=== PATIENT | male | born 1975 | race Caucasian/White ===

== ENCOUNTER 2019-02-10 17:19 | Emergency (ER) | payer MEDICAID ==
[~2019-02-10] VITALS: Ht 170.2 cm; Wt 81.8 kg
[~2019-02-10 17:19] MED LIST: HYDROCODONE-APA1 TAB PO; PEPCID40 MG PO; PRINIVIL20 MG PO; PROTONIX40 MG PO
[2019-02-10 17:34] VITALS: Ht 170.2 cm; Wt 81.8 kg
[2019-02-10] MEDS ORDERED: PENICILLIN V P500 MG PO (19:02)
[2019-02-10] MEDS ORDERED: TYLENOL W/CODEI1 TAB PO (19:02)
[2019-02-10 19:40] VITALS: BP 141/98
== END 2019-02-10 19:41 | disposition home or self-care (01) ==
LOC: D.ER 17:19
DX: K04.7 Periapical abscess without sinus (principal)

== ENCOUNTER 2019-05-28 19:18 | Emergency (ER) | payer MEDICAID ==
[~2019-05-28] VITALS: Ht 170.2 cm; Wt 93.0 kg
[~2019-05-28 19:18] MED LIST changes: +PENICILLIN V P500 MG PO; +TYLENOL W/CODEI1 TAB PO
[2019-05-28 19:42] VITALS: Ht 170.2 cm; Wt 93.0 kg
[2019-05-28 19:55] LABS: BASOPHILS 0.4 % (0-2); HEMATOCRIT 41.7 % (42.0-54.0); HEMOGLOBIN 13.8 g/dL (13.5-17.5); IMMATURE GRANULOCYTES 0.3 % (0-5); LYMPHOCYTES 32.8 % (15-50); MCH 29.5 pg (26.0-34.0); MCHC 33.1 g/dL (31.0-37.0); MCV 89.1 fL (80.0-100.0); MEAN PLATELET VOLUME 9.2 fL (7.4-10.4); MONOCYTES 7.3 % (2-11); NEUTROPHILS 57.2 % (40-80); PLATELET COUNT 241 10x3/uL (130-400); RBC 4.68 10x6/uL (4.20-6.10); RDW 13.3 % (11.5-14.5); WBC 7.6 10x3/uL (4.8-10.8)
[2019-05-28 20:06] LABS: CALC OSMOLALITY 280 mosm/kg (275-300); CALCIUM 8.9 mg/dL (8.5-10.1); CARBON DIOXIDE 30.1 mmol/L (21.0-32.0); CHLORIDE - SERUM 107 mmol/L (98-107); CREATININE - SERUM 0.7 mg/dL (0.6-1.3); GLUCOSE 92 mg/dL (74-106); POTASSIUM - SERUM 4.2 mmol/L (3.5-5.1); SODIUM 141 mmol/L (136-145); UREA NITROGEN 13 mg/dL (7-18); eGFR NON AFRICAN AMERICAN > 90 mL/min (90-120)
[2019-05-28 20:12] LABS: ALBUMIN 3.5 g/dL (3.4-5.0); ALKALINE PHOSPHATASE 103 U/L (46-116); ALT (SGPT) 27 U/L (10-68); AMYLASE - SERUM 48 U/L (25-115); BILIRUBIN - TOTAL 0.19 mg/dL (0.2-1.3); LIPASE 131 U/L (73-393); PROTEIN - SERUM 7.4 g/dL (6.4-8.2)
[2019-05-28 21:01] VITALS: BP 142/85
== END 2019-05-28 21:01 | disposition home or self-care (01) ==
LOC: D.ER 19:18
PROVIDERS: Emergency Medicine
DX: R10.33 Periumbilical pain (principal)